=== PATIENT | female | born 1960 | race Caucasian/White ===

== ENCOUNTER → 2018-04-05 | Outpatient (CLI) | payer OTHER | LOC: M.RAD 13:00 | DX: Z12.31 Encounter for screening mammogram for malignant neoplasm of breast (principal) ==

== ENCOUNTER → 2019-04-06 | Outpatient (CLI) | payer OTHER | LOC: M.RAD 10:01 | DX: Z12.31 Encounter for screening mammogram for malignant neoplasm of breast (principal) ==

== ENCOUNTER → 2019-05-11 | Outpatient (CLI) | payer OTHER ==
[~2019-05-11] MED LIST: ACTIGALL300 MG PO; ZETIA10 MG PO
[2019-05-11 11:00] LABS: ALBUMIN 3.7 g/dL (3.4-5.0); DIRECT BILIRUBIN 0.1 mg/dL (<0.1-0.3); TOTAL BILIRUBIN 0.3 mg/dL (<0.1-1.0); TOTAL PROTEIN 8.5 g/dL (6.4-8.2)
[2019-05-12 02:06] LABS: IgG 1707 mg/dL (700-1600)
== END ==
LOC: M.ULTRA 09:40 → M.LAB 09:40 → M.ULTRA 10:30
PROVIDERS: Internal Medicine Gastroenterology
DX: R94.5 Abnormal results of liver function studies (principal)

== ENCOUNTER → 2019-05-29 | Outpatient (CLI) | payer OTHER ==
[~2019-05-29] VITALS: Ht 170.2 cm; Wt 70.3 kg
[2019-05-29 12:12] VITALS: BP 121/77
[2019-05-29 12:15] LABS: HEMATOCRIT 38.2 % (37.0-47.0); HEMOGLOBIN 12.8 gm/dL (12.0-15.0); MCH 30.2 pg (26.0-34.0); MCHC 33.6 g/dL (28.0-37.0); MPV 9.6 fl. (7.2-11.1); RBC 4.24 mil/uL (4.20-5.00); RDW-CV 12.7 % (10.5-14.5); WBC 6.6 thou/uL (4.0-11.0)
[2019-05-29 12:21] LABS: CALCIUM 9.7 mg/dL (8.5-10.1); CREATININE 0.8 mg/dL (0.6-1.3); POTASSIUM 3.6 mmol/L (3.5-5.1)
[2019-05-29 12:23] LABS: APTT 27.4 Seconds (25.0-31.3); PROTIME 10.7 Seconds (9.20-11.50)
[2019-05-29 12:46] VITALS: BP 147/79
[2019-05-29 12:47] VITALS: BP 135/71
[2019-05-29 12:49] VITALS: BP 119/62
[2019-05-29 12:51] VITALS: BP 114/65
--- NOTE | 2019-06-05 18:07 | PATH ---
[address] [address] PATHOLOGY RPT PROCEDURE Name: XOCHITL PAULA Room: [facility] Aida#: [id number] Admission: 05/29/19 Date of : 60 Discharge: Report #: [id number] Path Case #: [id number] [facility] Accession Number: [id number] . 01 Material submitted: . liver - LIVER BIOPSY . 01 Clinical history: . Cholangitis . 02 Diagnosis: Liver biopsy: - Benign liver with mild chronic portal and lobular inflammation and minimal fibrosis. See comment. (VALDEZ:kaitlin; 05/30/2019) R 05/30/2019 1448 Local . 02 Comment: The biopsies reveal abundant benign liver tissue without steatosis and there is a mild chronic portal inflammation noted to contain abundant plasma cells as well as scattered eosinophils and neutrophils. Bile ducts are present but in some areas appear damaged with bile ductular proliferation. No granulomas are seen. Properly controlled special stains performed on each of A1, A2 and A3 show similar findings for each as follows: . Iron - no stainable increase. PAS with and without diastase - no PAS positive globules. Reticulin and trichrome - mild spotty fibrosis without cirrhosis. . This case will be submitted to the [facility] Department of Hepatopathology in consultation and an addendum report will be issued. . (VALDEZ:kaitlin; 05/30/2019) . 02 Addendum: . Special studies report received from [facility] [address] [place] [address], on case [id number], labeled with their number [id number], dated 06/05/2019. . [facility] Pathology Consultation . Pathology Consult . Interpretation . 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 (See comment) . COMMENT Thank you for sending this case for consultation. The needle biopsy of the liver is an adequate specimen with more than 10 portal tracts for review. Some portal tracts are expanded by mild to moderate lymphoplasmacytic infiltrate with focal minimal interface activity. There is no ductopenia, but focal cholangitis is present. At least one portal tract also shows poorly formed granulomatous inflammation surrounding the bile duct, resembling a florid ductal lesion. The lobular parenchyma only contains rare necroinflammatory foci and microgranulomas. There is no significant steatosis. Repeated trichrome stain performed on the submitted paraffin block shows portal and focal periportal fibrosis. The iron stain is negative. The PAS-D stain is negative for intracytoplasmic globules in hepatocytes. Additional stains performed on the submitted paraffin block (A1) show negative copper and CD1a immunostain. There are many IgG-positive plasma cells and one portal tract also contains many IgM-positive plasma cells. . The patient is a 58-year-old female who presented with elevated liver function tests since October 2018 and her most recent liver function test still shows elevated alkaline phosphatase level with normalized AST and ALT. The enclosed laboratory results also indicate positive AMA and ASMA with elevated IgG at 1707. In my opinion, the evidence of portal lymphoplasmacytic infiltrate with bile duct injury, especially focal florid ductal lesion, in conjunction with the laboratory results, is most consistent with primary biliary cirrhosis. Even though the patient has positive ASMA and elevated IgG level, the presence of only minimal interface and lobular inflammatory activity would argue against primary biliary cirrhosis-autoimmune hepatitis syndrome in the current biopsy, but a minor or resolving component of autoimmune hepatitis is still possible. . Your material is being returned. Please let us know of any pertinent follow-up. If you have any questions, please do not hesitate to reach me at [phone]. . . Material Received A. [id number]: Liver 18 stained slides, 1 block . Report electronically signed by Ramy Suh M.D. [phone] . I verify that I have examined all relevant slides/materials for the specimen(s) and rendered [place] [address] PATHOLOGY RPT PROCEDURE Name: XOCHITL PAULA Room: [facility]#: [id number] Admission: 05/29/19 Date of : 60 Discharge: Report #: [id number] Path Case #: [id number] . . . Disclaimer This test was developed and its performance characteristics determined by [facility] in a manner consistent with CLIA requirements. This test has not been cleared or approved by the U.S. Food and Drug Administration. . A complete copy of the report is on file. . [place] [address]. Technical services performed by [address], [address] [address]. . (VALDEZ:ammateo 06/05/2019) . AZJ/06/05/2019 Addendum Electronically Signed by Jose Luis Lofton MD, Pathologist . 02 Electronically signed: . Jose Luis Lofton MD, Pathologist NPI- [id number] . 01 Gross description: . Received in formalin labeled "Xochitl Paula, liver biopsy," are 4 distinct needle cores of valladares soft tissue ranging from 0.4-2.0 cm in length and measuring less than 0.1 cm each in diameter. The specimen is submitted entirely in cassettes A1-A3. (TSD; 05/29/2019) TOB/TOB 05/29/2019 1944 Local . 02 Pathologist provided ICD-10: K74.0, K76.89 . 02 CPT . 813653, 892744, 408406, 540159, 782531, 138042, 810144, 796870, 172984, 539751, 358682, 837608, 548164 Specimen Comment: A courtesy copy of this report has been sent to [phone], [phone] Specimen Comment: [phone], Specimen Comment: Report sent to , and Performed at: 01 [facility] [id number] [facility] [address], [place], [place] [id number] MD Ky Doll MD Phone: [phone] Performed at: 02 [facility] [address] [place], [place] [id number] [facility] [address] [place] [address] PATHOLOGY RPT PROCEDURE Name: XOCHITL PAULA Room: [facility] Parra#: [id number] Admission: 05/29/19 Date of : 60 Discharge: Report #: [id number] Path Case #: [id number] MD Jose Luis Lofton MD Phone: [phone]
== END | disposition home or self-care (01) ==
LOC: M.ULTRA 11:04
PROVIDERS: Radiology Diagnostic Radiology
DX: K74.0 Hepatic fibrosis (principal); K73.1 Chronic lobular hepatitis, not elsewhere classified; K76.89 Other specified diseases of liver; Z98.890 Other specified postprocedural states; Z79.899 Other long term (current) drug therapy

== ENCOUNTER → 2019-11-15 | Outpatient (CLI) | payer OTHER | LOC: M.CT 13:26 | DX: Z13.6 Encounter for screening for cardiovascular disorders (principal) ==

== ENCOUNTER → 2019-11-15 | Outpatient (CLI) | payer OTHER ==
[2019-11-15 14:33] LABS: ALBUMIN 3.7 g/dL (3.4-5.0); ALKALINE PHOSPHATASE 138 U/L (46-116); CHOLESTEROL 209 mg/dL (<200); DIRECT BILIRUBIN 0.1 mg/dL (<0.1-0.3); HDL CHOLESTEROL 66 mg/dL (>40); LDL CHOLESTEROL 125 mg/dL (<100); SGOT 23 U/L (15-37); SGPT 29 U/L (30-65); TC:HDL 3.2 Ratio (Not establshd); TOTAL BILIRUBIN 0.4 mg/dL (<0.1-1.0); TOTAL PROTEIN 8.6 g/dL (6.4-8.2); TRIGLYCERIDE 94 mg/dL (<150); VLDL 19 mg/dL (<40)
[2019-11-15 14:34] LABS: SERUM ASSESSMENT Clear
== END ==
LOC: M.LAB 13:35
PROVIDERS: Nurse Practitioner
DX: E78.5 Hyperlipidemia, unspecified (principal)

== ENCOUNTER → 2020-04-23 | Outpatient (CLI) | payer OTHER | LOC: M.RAD 15:00 | PROVIDERS: ATTEND Specialist | DX: Z12.31 Encounter for screening mammogram for malignant neoplasm of breast (principal) ==

== ENCOUNTER 2021-04-15 19:13 | Emergency (ER) | payer OTHER ==
[~2021-04-15] VITALS: Ht 172.7 cm; Wt 68.0 kg
[2021-04-15 19:23] VITALS: BP 124/73
--- NOTE | 2021-04-16 14:14 | EKG ---
[place] [address] ELECTROCARDIOGRAM REPORT Name: XOCHITL GARCIA Room: [facility]#: [id number] Admission: 04/15/21 Attend Phys: Discharge: 04/15/21 Date of : 60 Date of Service: 04/15/211918 Report #: [id number] THIS REPORT FOR: //name// [facility] ED Test Date: 2021-04-15 Test Time: 19:19:19 Pat Name: XOCHITL GARCIA Department: Room: Gender: F [employer]: : 1960 Requested By: Delphine Byrne Order Number: [id number] MD: Rylan Arango Measurements Intervals [place] Rate: 92 P: 63 GA: 143 QRS: 49 QRSD: 94 T: 31 QT: 357 QTc: 442 Interpretive Statements Sinus rhythm Probable left atrial enlargement Compared to ECG 05/27/2012 01:18:35 No significant changes Electronically Signed On 04-16-2021 14:14:27 CDT by Rylan Arango [email or web address] <ELECTRONICALLY SIGNED> By: Rylan Arango MD, [facility] 04/16/21 1414 18 18 Rylan Arango MD, [facility] /EPI
== END 2021-04-15 20:16 | disposition left against medical advice (07) ==
LOC: M.ERS 19:13
DX: R07.89 Other chest pain (principal); Z53.21 Procedure and treatment not carried out due to patient leaving prior to being seen by health care provider

== ENCOUNTER → 2021-04-24 | Outpatient (CLI) | payer OTHER | LOC: M.RAD 08:45 | PROVIDERS: ATTEND Specialist | DX: Z12.31 Encounter for screening mammogram for malignant neoplasm of breast (principal) ==

== ENCOUNTER → 2021-05-07 | Outpatient (CLI) | payer OTHER | LOC: M.RAD 14:44 | PROVIDERS: ATTEND Specialist | DX: Z01.419 Encounter for gynecological examination (general) (routine) without abnormal findings (principal); M85.88 Other specified disorders of bone density and structure, other site; M81.0 Age-related osteoporosis without current pathological fracture; R79.89 Other specified abnormal findings of blood chemistry ==